=== PATIENT | male | born 1950 | race Two or more races ===

== ENCOUNTER 2021-09-11 16:50 | Inpatient (IN) | payer MEDICAID, OTHER ==
[~2021-09-11] VITALS: Ht 167.6 cm; Wt 62.1 kg
[2021-09-11] MEDS ORDERED: PIPERACILLIN/TAZ 3.375G PREMIX 50 ML IV ONE (17:00)
[2021-09-11] MEDS ORDERED: VANCOMYCIN 1 G PREMIX 200 ML IV ONE (17:00)
[2021-09-11 17:25] LABS: MEAN CORPUSCULAR VOLUME 85.2 fL (80.0-94.0); MEAN PLATELET VOLUME 7.5 fl (7.4-10.4); PLATELET 551 x1000/uL (130-400); RED BLOOD CELL COUNT 2.47 mill/uL (4.7-6.1); RED CELL DISTRIBUTION WIDTH 19.2 % (11.6-14.6)
[2021-09-11 17:30] LABS: CHLORIDE 94 mEq/L (98-107)
[2021-09-11 17:32] LABS: INR 1.1; PROTHROMBIN TIME 11.9 sec (9.6-11.0)
[2021-09-11 17:34] LABS: HEMOGLOBIN. 6.7 g/dL (14.0-18.0)
[2021-09-11 17:35] LABS: HEMATOCRIT. 21.1 % (42.0-52.0)
[2021-09-11 17:54] LABS: PLATELET ESTIMATE INCREASED
[2021-09-11 19:55] LABS: CLARITY URINE CLEAR (CLEAR); COLOR URINE DARK YELLOW (YELLOW); KETONES URINE NEGATIVE (NEGATIVE); LEUKOCYTE ESTERASE URINE NEGATIVE (NEGATIVE); NITRITE URINE NEGATIVE (NEGATIVE); OCCULT BLOOD URINE NEGATIVE (NEGATIVE); PROTEIN URINE TRACE (NEGATIVE); SPECIFIC GRAVITY URINE 1.017 (1.005-1.030); UROBILINOGEN URINE 0.2 E.U./dL (0.2-1.0)
[2021-09-11] MEDS ORDERED: ONDANSETRON HCL 4MG/2ML INJ IV PRN (22:00)
[2021-09-11] MEDS ORDERED: ZOLPIDEM TARTRATE 5MG TABLET PO PRN (22:00)
[2021-09-11] MEDS ORDERED: CLONIDINE 0.1MG TABLET PO PRN (22:00)
[2021-09-11] MEDS ORDERED: PIPERACILLIN/TAZ 3.375G PREMIX 50 ML IV NR (22:00)
[2021-09-11] MEDS ORDERED: PANTOPRAZOLE 80 MG in SODIUM CHLORIDE 0.9% 100 ML IV SCH (22:00)
[2021-09-11] MEDS ORDERED: ACETAMINOPHEN 325MG TABLET PO PRN (22:00)
[2021-09-11] MEDS ORDERED: NOREPINEPHRINE 8 MG in DEXT 5% WATER 242 ML IV PRN ×2 (22:00→22:15)
[2021-09-11] MEDS ORDERED: IPRATROPIUM/ALBUTEROL 0.5-3(2.5)MG/3ML NEB NEB PRN (22:00)
[2021-09-11] MEDS ORDERED: DOCUSATE SODIUM 100MG CAPSULE PO PRN (22:00)
[2021-09-11] MEDS ORDERED: MAGNESIUM/ALUMINUM HYDROXIDE/SIMETHICONE 30ML UDC PO PRN (22:00)
[2021-09-11] MEDS ORDERED: GUAIFENESIN 200MG/10ML SUGAR FREE UDC PO PRN (22:00)
[2021-09-11 22:47] LABS: TOTAL IRON BINDING CAPACITY 156 ug/dL (250-450)
[2021-09-11 23:17] LABS: VITAMIN B12 SERUM 1618 pg/mL (211-911)
[2021-09-11 23:21] LABS: FOLIC ACID (FOLATE) SERUM > 20.00 ng/mL (>5.38)
[2021-09-11] MEDS: PANTOPRAZOLE 80 MG in SODIUM CHLORIDE 0.9% 100 ML IV SCH (23:21)
[2021-09-11] MEDS: DEXT 5%/0.45% NACL 1000ML 1,000 ML IV SCH (23:22)
[2021-09-12] VITALS (10 sets, daily range): BP systolic 110–133; BP diastolic 52–81
[2021-09-12 00:43] LABS: HEMATOCRIT. 23.7 % (42.0-52.0); HEMOGLOBIN. 7.7 g/dL (14.0-18.0); MEAN PLATELET VOLUME 7.4 fl (7.4-10.4); PLATELET 491 x1000/uL (130-400); RED BLOOD CELL COUNT 2.76 mill/uL (4.7-6.1); RED CELL DISTRIBUTION WIDTH 17.4 % (11.6-14.6)
[2021-09-12 01:47] LABS: PLATELET ESTIMATE INCREASED
[2021-09-12 04:14] LABS: HEMATOCRIT. 24.2 % (42.0-52.0); HEMOGLOBIN. 7.8 g/dL (14.0-18.0); MEAN CORPUSCULAR HEMOGLOBIN 27.7 pg (28.0-32.0); MEAN CORPUSCULAR VOLUME 85.5 fL (80.0-94.0); MEAN PLATELET VOLUME 7.3 fl (7.4-10.4); PLATELET 462 x1000/uL (130-400); RED BLOOD CELL COUNT 2.82 mill/uL (4.7-6.1); RED CELL DISTRIBUTION WIDTH 17.7 % (11.6-14.6)
[2021-09-12 04:24] LABS: PHOSPHORUS 3.4 mg/dL (2.5-4.9)
[2021-09-12] MEDS: PIPERACILLIN/TAZOBACTAM 3.375G in DEXT 5% WATER 50ML IV SCH ×3 (06:50→22:30)
[2021-09-12] MEDS: DEXT 5%/0.45% NACL 1000ML 1,000 ML IV SCH ×2 (08:05→18:10)
[2021-09-12] MEDS: PANTOPRAZOLE 80 MG in SODIUM CHLORIDE 0.9% 100 ML IV SCH ×2 (08:42→18:07)
[2021-09-12] MEDS ORDERED: VANCOMYCIN 750 MG PREMIX 150 ML IV SCH (14:00)
[2021-09-12] MEDS ORDERED: DIATR MEGLU/DIATRIZOATE SOLN 30ML ONE (16:34)
[2021-09-12 18:27] LABS: PLATELET ESTIMATE INCREASED
[2021-09-13] VITALS (13 sets, daily range): BP systolic 102–127; BP diastolic 47–73
[2021-09-13] MEDS: PANTOPRAZOLE 80 MG in SODIUM CHLORIDE 0.9% 100 ML IV SCH ×2 (05:31→13:20)
[2021-09-13] MEDS: PIPERACILLIN/TAZOBACTAM 3.375G in DEXT 5% WATER 50ML IV SCH ×3 (05:31→21:26)
[2021-09-13] MEDS: DEXT 5%/0.45% NACL 1000ML 1,000 ML IV SCH ×2 (05:32→13:20)
[2021-09-13 08:15] LABS: HEMATOCRIT. 28.1 % (42.0-52.0); HEMOGLOBIN. 9.5 g/dL (14.0-18.0); MEAN CORPUSCULAR HEMOGLOBIN 29.2 pg (28.0-32.0); MEAN CORPUSCULAR VOLUME 86.2 fL (80.0-94.0); MEAN PLATELET VOLUME 7.4 fl (7.4-10.4); PLATELET 424 x1000/uL (130-400); RED BLOOD CELL COUNT 3.26 mill/uL (4.7-6.1); RED CELL DISTRIBUTION WIDTH 17.8 % (11.6-14.6)
[2021-09-13 08:26] LABS: CHLORIDE 103 mEq/L (98-107)
[2021-09-13 11:31] LABS: HEPATITIS B SURFACE ANTIGEN NEGATIVE
[2021-09-13 13:39] LABS: FERRITIN 5226 ng/mL (22-322)
[2021-09-13] MEDS: VANCOMYCIN 1 G PREMIX 200 ML IV SCH (14:11)
[2021-09-13 18:15] LABS: PLATELET ESTIMATE INCREASED
[2021-09-14] VITALS (10 sets, daily range): BP systolic 104–145; BP diastolic 54–77
[2021-09-14] MEDS: DEXT 5%/0.45% NACL 1000ML 1,000 ML IV SCH ×3 (00:02→23:03)
[2021-09-14] MEDS: PIPERACILLIN/TAZOBACTAM 3.375G in DEXT 5% WATER 50ML IV SCH ×3 (06:00→21:15)
[2021-09-14] MEDS: VANCOMYCIN 1 G PREMIX 200 ML IV SCH (08:36)
[2021-09-14] MEDS: PANTOPRAZOLE SODIUM 40 MG/VIAL IV SCH ×2 (08:37→21:15)
[2021-09-15] VITALS: BP 120/75
[2021-09-15] MEDS: ACETAMINOPHEN 325MG TABLET PO PRN ×4 (00:06→20:52)
[2021-09-15] MEDS: VANCOMYCIN 1 G PREMIX 200 ML IV SCH ×2 (01:28→20:33)
[2021-09-15 04:00] VITALS: BP 113/58
[2021-09-15] MEDS: PIPERACILLIN/TAZOBACTAM 3.375G in DEXT 5% WATER 50ML IV SCH ×3 (05:32→22:21)
[2021-09-15 08:00] VITALS: BP 110/54
[2021-09-15] MEDS: PANTOPRAZOLE SODIUM 40 MG/VIAL IV SCH ×2 (09:04→20:46)
[2021-09-15 12:00] VITALS: BP 122/69
[2021-09-15 12:02] LABS: CHLORIDE 102 mEq/L (98-107)
[2021-09-15 12:08] LABS: HEMATOCRIT. 29.6 % (42.0-52.0); HEMOGLOBIN. 9.7 g/dL (14.0-18.0); MEAN CORPUSCULAR HEMOGLOBIN 28.7 pg (28.0-32.0); MEAN CORPUSCULAR VOLUME 87.1 fL (80.0-94.0); MEAN PLATELET VOLUME 7.2 fl (7.4-10.4); PLATELET 343 x1000/uL (130-400); RED BLOOD CELL COUNT 3.39 mill/uL (4.7-6.1); RED CELL DISTRIBUTION WIDTH 18.5 % (11.6-14.6)
[2021-09-15 13:51] LABS: PLATELET ESTIMATE NORMAL
[2021-09-15] MEDS: DEXT 5%/0.45% NACL 1000ML 1,000 ML IV SCH ×2 (15:58→16:07)
[2021-09-15 16:00] VITALS: BP 137/74
[2021-09-15] MEDS: LACTOBACILLUS GG CAPSULE PO SCH (16:06)
[2021-09-15 20:00] VITALS: BP 116/65
[2021-09-16] VITALS: BP 141/67
[2021-09-16] MEDS: DEXT 5%/0.45% NACL 1000ML 1,000 ML IV SCH ×4 (02:05→21:47)
[2021-09-16 04:00] VITALS: BP 124/62
[2021-09-16] MEDS: PIPERACILLIN/TAZOBACTAM 3.375G in DEXT 5% WATER 50ML IV SCH ×3 (06:11→21:46)
[2021-09-16 08:00] VITALS: BP 142/73
[2021-09-16] MEDS: LACTOBACILLUS GG CAPSULE PO SCH (08:28)
[2021-09-16] MEDS: PANTOPRAZOLE SODIUM 40 MG/VIAL IV SCH ×2 (08:28→20:21)
[2021-09-16 12:00] VITALS: BP 126/75
[2021-09-16] MEDS: VANCOMYCIN 1 G PREMIX 200 ML IV SCH (14:14)
[2021-09-16] MEDS: ACETAMINOPHEN 325MG TABLET PO PRN ×2 (14:49→20:21)
[2021-09-16 16:00] VITALS: BP 132/62
[2021-09-16 20:00] VITALS: BP 108/68
[2021-09-17] VITALS: BP 118/64
[2021-09-17] MEDS: ACETAMINOPHEN 325MG TABLET PO PRN (02:08)
[2021-09-17 04:00] VITALS: BP 125/64
[2021-09-17 08:00] VITALS: BP 120/60
[2021-09-17] MEDS: LACTOBACILLUS GG CAPSULE PO SCH (10:14)
[2021-09-17] MEDS: PANTOPRAZOLE SODIUM 40 MG/VIAL IV SCH (10:14)
[2021-09-17 12:00] VITALS: BP_SYST 111; BP_SYST 140; BP_DIAS 54; BP_DIAS 58
== END 2021-09-17 13:50 | disposition home or self-care (01) | DRG 720 ==
LOC: ER 16:50 → MICUSO 20:39 → EDBD 20:39 → CVICU 09-12 07:30 → MICUSO 09-12 08:31 → 5EST 09-12 12:22
PROVIDERS: ADMIT Internal Medicine; ATTEND Internal Medicine
PROC: 30233N1 Transfusion of Nonautologous Red Blood Cells into Peripheral Vein, Percutaneous Approach (ICD-10-PCS; principal; 2021-09-11)
DX: A41.9 Sepsis, unspecified organism (principal); J96.01 Acute respiratory failure with hypoxia; K72.00 Acute and subacute hepatic failure without coma; N17.0 Acute kidney failure with tubular necrosis; R65.21 Severe sepsis with septic shock; D62 Acute posthemorrhagic anemia; E87.1 Hypo-osmolality and hyponatremia; L89.156 Pressure-induced deep tissue damage of sacral region; E44.0 Moderate protein-calorie malnutrition; G92.8 Other toxic encephalopathy; I21.A1 Myocardial infarction type 2; C14.0 Malignant neoplasm of pharynx, unspecified; E87.5 Hyperkalemia; I11.0 Hypertensive heart disease with heart failure; I50.32 Chronic diastolic (congestive) heart failure; Z20.822 Contact with and (suspected) exposure to COVID-19; J44.9 Chronic obstructive pulmonary disease, unspecified; K82.8 Other specified diseases of gallbladder; K56.7 Ileus, unspecified; D64.81 Anemia due to antineoplastic chemotherapy; T45.1X5A Adverse effect of antineoplastic and immunosuppressive drugs, initial encounter; Y92.89 Other specified places as the place of occurrence of the external cause; Z68.22 Body mass index [BMI] 22.0-22.9, adult; Z93.1 Gastrostomy status; N39.0 Urinary tract infection, site not specified
CPT/HCPCS: 36415; 71045; 74018; 76700; 80048; 80053; 80202; 81003; 82040; 82140; 82270; 82607; 82728; 82746; 83540; 83550; 83605; 83735; 83880; 84100; 84134; 84145; 84484; 85025; 85044; 85379; 86705; 86709; 86803; 86850; 86900; 86920; 87340; 87426; 93005; 93306; 93970; 97161; 97166; 99291; C9113; J2543; J3370; J7050; J7060; P9016; Q9963